=== PATIENT | female | born 1970 | race Caucasian/White ===

== ENCOUNTER → 2017-03-14 | Day surgery (SDC) | payer BC ==
[~2017-03-14] MED LIST: IV RINGERS,LACTATED 1000ML 1,000 ML IV SCH; LIDOCAINE 1% 1 ML SYRINGE. ID PRN; LIDOCAINE 2% PF Vial for OR 5 ML VIAL. ONE; ONDANSETRON PF 4 MG/2 ML VIAL. IV PRN; PROCHLORPERAZINE 10 MG/2 ML VIAL. IV PRN; PROPOFOL 20 ML IV ONE; fentaNYL PF VIAL 100 MCG/2 ML VIAL IV PRN
[2017-03-14 11:50] VITALS: BP 159/78
--- NOTE | 2017-03-18 15:17 | PATHOLOGY ---
PATHOLOGY REPORT * * * * * * * * FINAL DIAGNOSIS: A. Small bowel, biopsy: - No pathologic diagnosis. - Normal villous architecture. B. Stomach, antrum, biopsy: - Mild chronic inflammation, non-specific. - No evidence of Helicobacter pylori on immunoperoxidase stain. C. Esophagus, distal, biopsy: - Squamocolumnar epithelium with focal mild chronic inflammation. - No evidence of intestinal metaplasia, dysplasia, or carcinoma. D. Small bowel, terminal ileum, biopsy: - No pathologic diagnosis. - Normal villous architecture. E. Colon, rectum, biopsy: - Hyperplastic polyp. REPORT ELECTRONICALLY SIGNED BY: Genet Thomas M.D. DATE/TIME: 03/18/2017 15:16 * * * * * * * * GROSS PATHOLOGY: A. Received in formalin labeled "[address], small bowel biopsy," are four segments of samuel soft tissue measuring 0.9 x 0.8 x 0.3 cm in aggregate dimensions and ranging from 0.2 to 0.5 cm in maximum dimension. The specimen is submitted entirely in cassette A1. B. Received in formalin labeled "[address], gastric antrum biopsy," is a segment of samuel soft tissue measuring 0.6 cm in maximum dimension. The specimen is submitted entirely in cassette B1. C. Received in formalin labeled "[address], distal esophagus biopsy," are two segments of samuel soft tissue measuring 0.5 x 0.4 x 0.1 cm in aggregate dimensions and ranging from 0.2 to 0.5 cm in maximum dimension. The specimen is submitted entirely in cassette C1. D. Received in formalin labeled "[address], terminal ileum biopsy," are two segments of samuel soft tissue measuring 0.5 x 0.4 x 0.1 cm in aggregate dimensions and ranging 0.4 cm each in maximum dimension. The specimen is submitted entirely in cassette D1. E. Received in formalin labeled "[address], rectal polyp," are two segments of samuel soft tissue measuring 0.5 x 0.4 x 0.1 cm in aggregate dimensions and ranging from 0.3 to 0.5 cm in maximum dimension. The specimen is submitted entirely in cassette E1. ([facility]; 03/15/2017) INITIAL CPT CODE(S): A; 33662 B; 76920, 23562 C; 34621 D; 24649 E; 10283 Professional services performed by [facility], [address] [place] [address]. Technical services performed by [facility], [address] [place] [address], [address], [place] [address]. SPECIMEN(S) RECEIVED: A.Small bowel biopsy B.Gastric antrum biopsy C.Distal esophagus biopsy D.Terminal ileum biopsy E.Rectal polyp (polypectomy) CLINICAL HISTORY: Anemia, abdominal pain, epigastric pain PATIENT: RYLEEREYESRobbin Casas /AGE: 1008/27/1970 (Age: 46) PATIENT #: [id number] ALT CASE #: SPECIMEN COLLECTION DATE: 03/14/2017 SPECIMEN RECEIVED DATE: 03/14/2017 [facility] - [address] [place] [address] - PHONE: [phone] * * * END OF REPORT * * *
== END | disposition home or self-care (01) ==
LOC: ENDOS 09:31
PROVIDERS: ATTEND Internal Medicine Gastroenterology
DX: K21.0 Gastro-esophageal reflux disease with esophagitis (principal); K62.1 Rectal polyp; D50.9 Iron deficiency anemia, unspecified; K64.0 First degree hemorrhoids; K31.9 Disease of stomach and duodenum, unspecified; Z98.51 Tubal ligation status; M19.90 Unspecified osteoarthritis, unspecified site
CPT/HCPCS: 43239; 43450; 45380; 88305; 88342; J2704; G0641